=== PATIENT | male | born 1960 | race Caucasian/White ===

== ENCOUNTER 2019-02-16 22:37 | Emergency (ER) | payer MEDICARE, OTHER ==
[2019-02-16] MEDS ORDERED: LORazepam 1 MG TAB PO STA (23:32)
--- NOTE | 2019-02-16 23:52 | ED ---
General Adult HPI - General Source: patient, police Mode of arrival: ambulatory <Antione Mercer - Last Filed: 02/17/19 00:56> <Charles Galeano - Last Filed: 02/17/19 16:28> - General Stated complaint: PD Petition - History of Present Illness Initial comments: Chief complaint and history of present illness this is a 59-year-old male who is intoxicated. The patient actually called emergency room earlier to say that that he was suicidal he was going to jump out of a train. The patient reports he got too drunk and couldn't stand up to do it. Police Department was notified they found him and brought emergency room for a psychological evaluation. The patient again is intoxicated. States he has history of bipolar disorder. States he is suicidal, depressed over a divorce that just 2 months ago. (Antione Mercer) - Related Data Home Medications Medication Instructions Recorded Confirmed No Known Home Medications 02/16/19 02/16/19 Allergies Allergy/AdvReac Type Severity Reaction Status Date / Time No Known Allergies Allergy Verified 02/16/19 23:12 Review of Systems ROS Other: All systems not noted in ROS Statement are negative. <Antione Mercer - Last Filed: 02/17/19 00:56> ROS Other: All systems not noted in ROS Statement are negative. <Charles Galeano - Last Filed: 02/17/19 16:28> ROS Statement: Those systems with pertinent positive or pertinent negative responses have been documented in the HPI. Review of systems patient again states he's depressed. Denies any pain. He does have a superficial abrasion on his left wrist. This is cleaned and dressed with bacitracin. The patient intoxicated. Stating is a past history of bipolar disorder and has not been able to sleep for several days. Patient states he has a history of bipolar disorder. Currently not taking any medications. States he does not normally overdrink she's been depressed because of her recent divorce. He states he called his father and told him this is the end. He also stated that his plan would be to step in front of a moving train. Past medical problems significant for left clavicular surgery. Family history noncontributory. The patient smokes daily. Denies drug abuse. (Antione Mercer) Past Medical History Past Medical History: No Reported History Past Surgical History: Orthopedic Surgery Additional Past Surgical History / Comment(s): left clavical surgery Past Psychological History: Bipolar, Depression Smoking Status: Current every day smoker Past Alcohol Use History: Daily Past Drug Use History: None Reported <Antione Mercer - Last Filed: 02/17/19 00:56> General Exam <Antione Mercer - Last Filed: 02/17/19 00:56> - General Exam Comments Initial Comments: General: The patient is awake has slurred speech. States he drank a lot of beer this evening. Is depressed. Vital signs temperature 97.9 pulse 93 respiratory rate 18 pulse ox 98% on room air. No evidence of head injury, patient denies headache. Eye: Pupils are equal, extra-ocular movements are intact; there is normal conjunctiva bilaterally. No signs of icterus. Ears, nose, mouth and throat: There are moist mucous membranes and no oral lesions. Neck: The neck is supple, there is no tenderness or JVD. Cardiovascular: Patient denies chest pain no palpitations. Respiratory: No difficulty breathing, denies shortness of breath Gastrointestinal: Patient denies nausea vomiting or diarrhea. Denies abdominal pain Back: Patient denies any back pain. Musculoskeletal: Full range of motion upper and lower extremities. Small abrasion superficial left wrist cleaned and dressed Neurological: Intoxicated but no evidence of any focal or lateralizing findings Skin: Skin is warm and dry and no rashes or lesions are noted. Psychiatric: Intoxicated, states he's depressed, suicidal with the plan the just upper front of him moving train. Denies taking any medications at this time. Denies p revious admissions to any psych programs. Patient does not live in this area. Does not explain how he ended up here.. (Antione Mercer) Course Vital Signs 02/16/19 02/17/19 22:40 04:35 Temperature 97.9 F Pulse Rate 93 Respiratory 18 16 Rate Blood Pressure 147/96 O2 Sat by Pulse 98 Oximetry Medical Decision Making - Lab Data Result diagrams: 02/17/19 00:06 <Antione Mercer - Last Filed: 02/17/19 00:56> - Lab Data Result diagrams: 02/17/19 14:32 02/17/19 14:32 <Charles Galeano - Last Filed: 02/17/19 16:28> - Medical Decision Making Medical decision making; is a 59-year-old male brought emergency room by police because he threatened to commit suicide by stepping in front of a train. The patient is intoxicated. The patient was placed on CY protocol. Once his blood or breath alcohol level because normalized he'll have psychiatric evaluation. Final disposition will be determined by the psychiatric nurse and the psychiatrist. (Antione Mercer) I filled out a clinical certification on the patient after petition was filled out. (Charles Galeano) - Lab Data Lab Results 02/16/19 02/17/19 02/17/19 Range/Units 23:40 00:06 00:06 WBC 9.0 (3.8-10.6) k/uL RBC 4.42 (4.30-5.90) m/uL Hgb 13.2 (13.0-17.5) gm/dL Hct 39.4 (39.0-53.0) % MCV 89.2 (80.0-100.0) fL MCH 29.9 (25.0-35.0) pg MCHC 33.5 (31.0-37.0) g/dL RDW 16.1 H (11.5-15.5) % Plt Count 347 (150-450) k/uL Neutrophils % 42 % Lymphocytes % 46 % Monocytes % 6 % Eosinophils % 2 % Basophils % 1 % Neutrophils # 3.8 (1.3-7.7) k/uL Lymphocytes # 4.2 (1.0-4.8) k/uL Monocytes # 0.6 (0-1.0) k/uL Eosinophils # 0.2 (0-0.7) k/uL Basophils # 0.1 (0-0.2) k/uL Anisocytosis Slight Sodium 142 (137-145) mmol/L Potassium 4.2 (3.5-5.1) mmol/L Chloride 109 H (98-107) mmol/L Carbon Dioxide 18 L (22-30) mmol/L Anion Gap 15 mmol/L BUN 10 (9-20) mg/dL Creatinine 0.85 (0.66-1.25) mg/dL Est GFR (CKD-EPI)AfAm >90 (>60 ml/min/1.73 sqM) Est GFR (CKD-EPI)NonAf >90 (>60 ml/min/1.73 sqM) Glucose 121 H (74-99) mg/dL Calcium 9.0 (8.4-10.2) mg/dL Total Bilirubin 0.4 (0.2-1.3) mg/dL AST 31 (17-59) U/L ALT 30 (21-72) U/L Alkaline Phosphatase 83 (38-126) U/L Total Protein 8.4 H (6.3-8.2) g/dL Albumin 4.6 (3.5-5.0) g/dL TSH (0.465-4.680) mIU/L Salicylates <1.0 mg/dL Urine Opiates Screen Not Detected (NotDetected) Ur Oxycodone Screen Not Detected (NotDetected) Urine Methadone Screen Not Detected (NotDetected) Ur Propoxyphene Screen Not Detected (NotDetected) Acetaminophen <10.0 ug/mL Ur Barbiturates Screen Not Detected (NotDetected) U Tricyclic Antidepress Not Detected (NotDetected) Ur Phencyclidine Scrn Not Detected (NotDetected) Ur Amphetamines Screen Not Detected (NotDetected) U Methamphetamines Scrn Not Detected (NotDetected) U Benzodiazepines Scrn Not Detected (NotDetected) Urine Cocaine Screen Not Detected (NotDetected) U Marijuana (THC) Screen Not Detected (NotDetected) 02/17/19 02/17/19 Range/Units 14:32 14:32 WBC 9.6 (3.8-10.6) k/uL RBC 4.15 L (4.30-5.90) m/uL Hgb 12.4 L (13.0-17.5) gm/dL Hct 36.5 L (39.0-53.0) % MCV 88.0 (80.0-100.0) fL MCH 29.9 (25.0-35.0) pg MCHC 34.0 (31.0-37.0) g/dL RDW 16.5 H (11.5-15.5) % Plt Count 306 (150-450) k/uL Neutrophils % 52 % Lymphocytes % 36 % Monocytes % 7 % Eosinophils % 3 % Basophils % 1 % Neutrophils # 5.0 (1.3-7.7) k/uL Lymphocytes # 3.4 (1.0-4.8) k/uL Monocytes # 0.7 (0-1.0) k/uL Eosinophils # 0.3 (0-0.7) k/uL Basophils # 0.1 (0-0.2) k/uL Anisocytosis Slight Sodium 139 (137-145) mmol/L Potassium 4.1 (3.5-5.1) mmol/L Chloride 107 (98-107) mmol/L Carbon Dioxide 24 (22-30) mmol/L Anion Gap 8 mmol/L BUN 11 (9-20) mg/dL Creatinine 0.86 (0.66-1.25) mg/dL Est GFR (CKD-EPI)AfAm >90 (>60 ml/min/1.73 sqM) Est GFR (CKD-EPI)NonAf >90 (>60 ml/min/1.73 sqM) Glucose 90 (74-99) mg/dL Calcium 9.0 (8.4-10.2) mg/dL Total Bilirubin 0.6 (0.2-1.3) mg/dL AST 26 (17-59) U/L ALT 17 L (21-72) U/L Alkaline Phosphatase 65 (38-126) U/L Total Protein 7.3 (6.3-8.2) g/dL Albumin 3.9 (3.5-5.0) g/dL TSH 1.270 (0.465-4.680) mIU/L Salicylates mg/dL Urine Opiates Screen (NotDetected) Ur Oxycodone Screen (NotDetected) Urine Methadone Screen (NotDetected) Ur Propoxyphene Screen (NotDetected) Acetaminophen ug/mL Ur Barbiturates Screen (NotDetected) U Tricyclic Antidepress (NotDetected) Ur Phencyclidine Scrn (NotDetected) Ur Amphetamines Screen (NotDetected) U Methamphetamines Scrn (NotDetected) U Benzodiazepines Scrn (NotDetected) Urine Cocaine Screen (NotDetected) U Marijuana (THC) Screen (NotDetected) Disposition <Antione Mercer - Last Filed: 02/17/19 00:56> Time of Disposition: 16:28 <Charles Galeano - Last Filed: 02/17/19 16:28> Clinical Impression: Depression, Suicidal ideation Disposition: TRANSFER TO PSYCH HOSP/UNIT Referrals: None,Stated [Primary Care Provider] - 1-2 days
[2019-02-17 00:40] LABS: Anisocytosis Slight; Basophils # (A) 0.1 k/uL (0-0.2); Basophils % (A) 1 %; Eosinophils # (A) 0.2 k/uL (0-0.7); Eosinophils % (A) 2 %; HCT 39.4 % (39.0-53.0); HGB 13.2 gm/dL (13.0-17.5); Lymphocytes # (A) 4.2 k/uL (1.0-4.8); Lymphocytes % (A) 46 %; MCH 29.9 pg (25.0-35.0); MCHC 33.5 g/dL (31.0-37.0); MCV 89.2 fL (80.0-100.0); Mean Platelet Volume 9.5; Monocytes # (A) 0.6 k/uL (0-1.0); Monocytes % (A) 6 %; Neutrophils # (A) 3.8 k/uL (1.3-7.7); Neutrophils % (A) 42 %; Platelet Count 347 k/uL (150-450); RBC 4.42 m/uL (4.30-5.90); RDW 16.1 % (11.5-15.5)
[2019-02-17 00:43] LABS: Amphetamine Screen,Urine Not Detected (NotDetected); Barbiturate Screen,Urine Not Detected (NotDetected); Benzodiazepines Screen,Urine Not Detected (NotDetected); Cocaine Screen,Urine Not Detected (NotDetected); Methadone Screen, Urine Not Detected (NotDetected); Opiate Screen,Urine Not Detected (NotDetected); Oxycodone Screen, Urine Not Detected (NotDetected); Phencyclidine Screen,Urine Not Detected (NotDetected); Tricyclic Antidepressant,Urine Not Detected (NotDetected); Urn Cannabinoid Scrn Not Detected (NotDetected)
[2019-02-17 00:52] LABS: ALT 30 U/L (21-72); AST 31 U/L (17-59); Acetaminophen <10.0 ug/mL; Albumin 4.6 g/dL (3.5-5.0); Alkaline Phosphatase 83 U/L (38-126); Anion Gap 15 mmol/L; Blood Urea Nitrogen 10 mg/dL (9-20); Carbon Dioxide 18 mmol/L (22-30); Chloride 109 mmol/L (98-107); Glucose 121 mg/dL (74-99); Potassium 4.2 mmol/L (3.5-5.1); Salicylate <1.0 mg/dL; Sodium 142 mmol/L (137-145); Total Bilirubin 0.4 mg/dL (0.2-1.3); Total Protein 8.4 g/dL (6.3-8.2)
[2019-02-17] MEDS ORDERED: THIAMINE 100 MG/ML 2 ML VIAL IM STA (00:57)
[2019-02-17] MEDS ORDERED: LORazepam 2 MG/ML INJ IV PRN ×3 (00:57)
[2019-02-17] MEDS ORDERED: LORazepam 1 MG TAB PO STA (08:47)
[2019-02-17 14:44] LABS: Anisocytosis Slight; Basophils # (A) 0.1 k/uL (0-0.2); Basophils % (A) 1 %; Eosinophils # (A) 0.3 k/uL (0-0.7); Eosinophils % (A) 3 %; HCT 36.5 % (39.0-53.0); HGB 12.4 gm/dL (13.0-17.5); Lymphocytes # (A) 3.4 k/uL (1.0-4.8); Lymphocytes % (A) 36 %; MCH 29.9 pg (25.0-35.0); Monocytes # (A) 0.7 k/uL (0-1.0); Monocytes % (A) 7 %; Neutrophils % (A) 52 %; Platelet Count 306 k/uL (150-450); RBC 4.15 m/uL (4.30-5.90); RDW 16.5 % (11.5-15.5); WBC 9.6 k/uL (3.8-10.6)
[2019-02-17 14:54] LABS: ALT 17 U/L (21-72); AST 26 U/L (17-59); Albumin 3.9 g/dL (3.5-5.0); Alkaline Phosphatase 65 U/L (38-126); Anion Gap 8 mmol/L; Blood Urea Nitrogen 11 mg/dL (9-20); Carbon Dioxide 24 mmol/L (22-30); Chloride 107 mmol/L (98-107); Glucose 90 mg/dL (74-99); Potassium 4.1 mmol/L (3.5-5.1); Sodium 139 mmol/L (137-145); Total Bilirubin 0.6 mg/dL (0.2-1.3); Total Protein 7.3 g/dL (6.3-8.2)
[2019-02-17] MEDS: THIAMINE 100 MG TAB PO SCH ×2 (17:43)
[2019-02-17 17:48] VITALS: PULSE 81
[2019-02-17 22:10] VITALS: BP 118/65; RESP 18; TEMP 98.3
== END 2019-02-17 22:10 ==
LOC: EC 22:37
DX: F32.9 Major depressive disorder, single episode, unspecified (principal); R45.851 Suicidal ideations; S60.812A Abrasion of left wrist, initial encounter; F10.129 Alcohol abuse with intoxication, unspecified; F17.200 Nicotine dependence, unspecified, uncomplicated; X58.XXXA Exposure to other specified factors, initial encounter
CPT/HCPCS: 36415; 80053; 84443; 85025; 80306; 83520 ×2; 99285; 96372; J3411